=== PATIENT | female | born 1990 | race Caucasian/White ===

== ENCOUNTER 2019-12-26 12:39 | Emergency (ER) | payer SELFPAY ==
[~2019-12-26] VITALS: Ht 167.6 cm; Wt 59.1 kg
--- NOTE | 2019-12-26 13:25 | NUR ---
BREAK RN- ERMD AT BEDSIDE FOR EVALUATION
[2019-12-26 13:34] VITALS: BP 176/109
--- NOTE | 2019-12-26 13:46 | NUR ---
PT REC'VD DISCHARGE INSTRUCTIONS AND EDUCATION. PT HAD NO FURTHER QUESTIONS. PT AMBULATED TO DC DESK WITH SIGNIFICANT OTHER, STEADT GAIT.
== END 2019-12-26 13:49 | disposition home or self-care (01) ==
LOC: ED 13:30
DX: H10.32 Unspecified acute conjunctivitis, left eye (principal); F15.10 Other stimulant abuse, uncomplicated; R00.0 Tachycardia, unspecified; I51.7 Cardiomegaly; F41.0 Panic disorder [episodic paroxysmal anxiety]
CPT/HCPCS: 93005; 99283; Q0177